=== PATIENT | female | born 1955 | race Caucasian/White ===

== ENCOUNTER 2019-01-26 10:49 | Emergency (ER) | payer OTHER, MEDICARE ==
[2019-01-26] MEDS ORDERED: Adacel (T-DAP) 0.5 ML SYRINGE ONE (11:44)
--- NOTE | 2019-01-26 11:54 | RAD ---
LEFT MIDDLE FINGER 3 VIEWS: HISTORY: Left middle finger pain, injury, wound FINDINGS: No fracture, dislocation or bony destruction is seen. No radiopaque foreign bodies identified.
== END 2019-01-26 12:05 | disposition home or self-care (01) ==
LOC: ERS 10:49
DX: S61.203A Unspecified open wound of left middle finger without damage to nail, initial encounter (principal); E11.9 Type 2 diabetes mellitus without complications; Z79.4 Long term (current) use of insulin; W20.8XXA Other cause of strike by thrown, projected or falling object, initial encounter
CPT/HCPCS: 36416; 90471; 90715

== ENCOUNTER 2019-02-23 08:25 | Outpatient (CLI) | payer OTHER, MEDICARE ==
[2019-02-23] MEDS ORDERED: Sodium Chloride 0.9% 15 ML NEB ONE (09:00)
--- NOTE | 2019-02-24 00:22 | HP ---
HISTORY OF PRESENT ILLNESS: Ms. Nancy Meng is a very pleasant 63-year-old, who presents to the [facility] for evaluation of an ulceration over the dorsum of the left 3rd finger. The patient states that the ulceration began after helping her co-worker pull a cart while she herself was in her wheelchair. The patient states that her finger was caught between her coworker's cart and her own wheelchair. The patient states that she treated the wound with triple antibiotic ointment. She states that she was seen in the emergency department and prescribed a 10 day course of p.o. antibiotics. At a followup visit with her primary care physician, Dr. Oliveira, the patient was referred to the [facility]ound Center for further evaluation and treatment. PAST MEDICAL HISTORY: 1. Diabetes mellitus. 2. Hypertension. 3. History of anemia. 4. Hypothyroidism. 5. History of end-stage renal disease. 6. History of TIA. PAST SURGICAL HISTORY: 1. Laparoscopic cholecystectomy. 2. Dialysis access procedures. 3. Sleeve gastrectomy. 4. Kidney transplant. MEDICATIONS: 1. Synthroid. 2. Lipitor. 3. Vascepa. 4. capsule. 5. Folic acid. 6. Prograf. 7. Mycophenolate. 8. Prednisone. 9. Pravastatin. 10. Metformin. 11. Nexium. ALLERGIES: NO KNOWN ALLERGIES. SOCIAL HISTORY: Significant for tobacco use of 1 pack of cigarettes per day for approximately 2 years. The patient states she stopped smoking in December of 1987. The patient admits to the heavy consumption of alcohol in the past. She states that she stopped drinking in 1981. FAMILY HISTORY: Family history significant for diabetes mellitus. The patient states that she has multiple relatives who were diagnosed with diabetes mellitus. Family history is negative for coronary artery disease. PHYSICAL EXAMINATION: VITAL SIGNS: Temperature 98.2, pulse 68, respirations 19, and blood pressure 145/63. Accu-Chek 114. GENERAL: A 63-year-old female, sitting on chair in examination room, in no acute distress. HEENT: Normocephalic and atraumatic. NECK: No nuchal rigidity. CHEST: Clear to auscultation. CV: Regular rate and rhythm. ABDOMEN: Soft. EXTREMITIES: An ulceration over the dorsum of the left 3rd finger is present, which measures approximately 1.2 x 1.0 cm. Eschar covers the entire the wound bed of the ulceration. No purulent drainage is associated with the wound. No cellulitis of the left 3rd finger is appreciated. No maceration of the skin of the periwound is noted. No significant edema of the left 3rd finger is present on exam today. NEUROLOGIC: Grossly nonfocal. ASSESSMENT AND PLAN: 1. Ulceration of dorsum of left third finger as described above. Dressing changes of Silverlon gauze and Coban will be initiated today. These dressing changes are to be performed on a daily basis after cleansing and irrigation. No antibiotics will be prescribed today based upon the appearance of the wound. I will see Ms. Meng again in 2 weeks. The patient understands and is in agreement with the preceding treatment plan. 2. Diabetes mellitus. The patient's Accu-Chek in clinic today is 114. The patient has been told that for optimal wound healing her blood glucoses should remain below 150. 3. Hypertension. 4. History of anemia. 5. Hypothyroidism. 6. History of end-stage renal disease. 7. History of transient ischemic attack. Job ID: [id number]
== END 2019-02-23 08:26 | disposition home or self-care (01) ==
LOC: WCC 08:25
PROVIDERS: ATTEND Family Medicine
DX: T81.89XD Other complications of procedures, not elsewhere classified, subsequent encounter (principal)
CPT/HCPCS: 97602; 99203; A4218; G0463

== ENCOUNTER 2019-03-09 09:12 | Outpatient (CLI) | payer OTHER, MEDICARE ==
--- NOTE | 2019-03-09 11:20 | PRG ---
DATE OF SERVICE: 03/09/2019 HISTORY: Ms. Nancy Meng is a very pleasant 64-year-old, who presents to the [facility] for evaluation of an ulceration over the dorsum of the left 3rd finger. The patient previously stated that the ulceration began after helping her co-worker pull a cart while she herself was in her wheelchair. The patient stated that her finger was caught between her coworker's cart and her own wheelchair. She stated that she treated the wound with triple antibiotic ointment. She stated that she was seen in the emergency department and prescribed a 10-day course of p.o. antibiotics. At a followup visit with her primary care physician, Dr. Oliveira, the patient was referred to the [facility]ound Center for further evaluation and treatment. After being seen in the Wound Center, the patient was placed on dressing changes of Silverlon gauze and Coban. The patient states she has been performing these dressing changes on a daily basis after cleansing and irrigation as prescribed. PHYSICAL EXAMINATION: VITAL SIGNS: Temperature 98.4, pulse 55, respirations 20, blood pressure 185/77. Accu-Chek 104. EXTREMITIES: An ulceration over the dorsum of the left 3rd finger is present which measures approximately 1.2 x 1.1 cm. Again, eschar covers the entire wound bed of the ulceration. The eschar is dry and stable. No serous or purulent drainage is associated with the wound. No maceration of the skin of the periwound is noted. No significant edema of the left 3rd finger is present on exam today. ASSESSMENT AND PLAN: 1. Ulceration of dorsum of left 3rd finger as described above. Dressing changes of Silverlon gauze and Coban will be continued on a daily basis after cleansing and irrigation. I will see Ms. Meng again in 2 weeks. 2. Diabetes mellitus. The patient's Accu-Chek in clinic today is 104. The patient has been reminded that for optimal wound healing, her blood glucoses should remain below 150. 3. Hypertension. 4. History of anemia. 5. Hypothyroidism. 6. History of end-stage renal disease. 7. History of transient ischemic attack. Job ID: [id number]
[2019-03-09] MEDS ORDERED: Sodium Chloride 0.9% 15 ML NEB ONE (15:00)
== END 2019-03-09 09:13 | disposition home or self-care (01) ==
LOC: WCC 09:12
PROVIDERS: ATTEND Family Medicine
DX: E11.622 Type 2 diabetes mellitus with other skin ulcer (principal); L98.499 Non-pressure chronic ulcer of skin of other sites with unspecified severity; E03.9 Hypothyroidism, unspecified; I12.0 Hypertensive chronic kidney disease with stage 5 chronic kidney disease or end stage renal disease; E11.22 Type 2 diabetes mellitus with diabetic chronic kidney disease; N18.6 End stage renal disease
CPT/HCPCS: A4218

== ENCOUNTER 2019-03-23 10:57 | Outpatient (CLI) | payer OTHER, MEDICARE ==
--- NOTE | 2019-03-23 10:10 | PRG ---
DATE OF SERVICE: 03/23/2019 HISTORY: Ms. Nancy Meng is a very pleasant 64-year-old, who presents to the [facility] for evaluation of an ulceration over the dorsum of the left third finger. The patient previously stated that the ulceration began after helping her co-worker pull a cart while she herself was in her wheelchair. The patient stated that her finger was caught between her coworker's cart and her own wheelchair. She stated that she treated the wound with triple antibiotic ointment. She stated that she was seen in the emergency department and prescribed a 10-day course of p.o. antibiotics. At a followup visit with her primary care physician, Dr. Oliveira, the patient was referred to the [facility]ound Center for further evaluation and treatment. After being seen in the Wound Center, the patient was placed on dressing changes of Silverlon gauze and Coban. Again, the patient states that she has been performing these dressing changes on a daily basis after cleansing and irrigation as prescribed. PHYSICAL EXAMINATION: VITAL SIGNS: Temperature 98.3, pulse 78, respirations 20, blood pressure 201/83, Accu-Chek 112. EXTREMITIES: An ulceration over the dorsum of the left third finger is present, which measures approximately 1.4 x 1.2 cm. Again, eschar covers the entire wound bed of the ulceration. The eschar is dry and stable. Scant serous drainage is associated with the wound. No maceration of the skin of the periwound is noted. No significant edema of the left third finger is present on exam today. ASSESSMENT AND PLAN: 1. Ulceration of dorsum of left third finger as described above. Dressing changes of Silverlon gauze and Coban will be continued on a daily basis after cleansing and irrigation. I will see Ms. Meng again in 2 weeks. The dimensions of the wound at the time of the patient's last visit were approximately 1.2 x 1.1 cm. I have explained to the patient should the dimensions of the wound increase over the next two weeks, consideration will need to be given to treatment with a debriding agent followed by a course of negative pressure therapy. The patient understands and is in agreement with the preceding treatment. 2. Diabetes mellitus. The patient's Accu-Chek in clinic today is 112. The patient has been reminded that for optimal wound healing her blood glucoses should remain below 150. 3. Hypertension. 4. History of anemia. 5. Hypothyroidism. 6. History of end-stage renal disease. 7. History of transient ischemic attack. Job ID: [id number]
[~2019-03-23 10:57] MED LIST: Sodium Chloride 0.9% 15 ML NEB ONE
== END 2019-03-23 10:58 | disposition home or self-care (01) ==
LOC: WCC 10:57
PROVIDERS: ATTEND Family Medicine
DX: E11.622 Type 2 diabetes mellitus with other skin ulcer (principal); L98.499 Non-pressure chronic ulcer of skin of other sites with unspecified severity; I10 Essential (primary) hypertension; E03.9 Hypothyroidism, unspecified; N18.6 End stage renal disease; Z86.73 Personal history of transient ischemic attack (TIA), and cerebral infarction without residual deficits; Z86.2 Personal history of diseases of the blood and blood-forming organs and certain disorders involving the immune mechanism
CPT/HCPCS: A4218

== ENCOUNTER 2019-04-06 08:30 | Outpatient (CLI) | payer OTHER, MEDICARE ==
--- NOTE | 2019-04-06 09:54 | PRG ---
DATE OF SERVICE: 04/06/2019 HISTORY: Ms. Nancy Meng is a very pleasant 64-year-old, who presents to the wound center for evaluation of an ulceration over the dorsum of the left 3rd finger. The patient previously stated that the ulceration began after helping her coworker pull a cart while she herself was in her wheelchair. The patient stated that her finger was caught between her coworker's cart and her own wheelchair. She stated that she treated the wound with triple antibiotic ointment. She stated that she was seen in the emergency department and prescribed a 10-day course of p.o. antibiotics. At a followup visit with her primary care physician, Dr. Oliveira, the patient was referred to the wound center for further evaluation and treatment. After being seen in the wound center, the patient was placed on dressing changes of Silverlon gauze and Coban. Again, the patient states she has been performing these dressing changes on a daily basis after cleansing and irrigation as prescribed. Today, the patient complains of pain associated with the ulceration of the dorsum of the left 3rd finger. PHYSICAL EXAMINATION: VITAL SIGNS: Temperature 97.8, pulse 65, respirations 16, and blood pressure 185/74. Accu-Chek 89. EXTREMITIES: An ulceration over the dorsum of the left 3rd finger is present, which measures approximately 1.3 x 1.6 cm. The dimensions of the wound at the time of the patient's visit on 03/23/2019 were approximately 1.4 x 1.2 cm. Again, eschar covers the entire wound bed of the ulceration. The eschar is dry and stable. No serous drainage is associated with the wound on exam today. No maceration of the skin of the periwound is noted. No significant edema of the left 3rd finger is present on exam today. ASSESSMENT AND PLAN: 1. Ulceration of dorsum of the left 3rd finger as described above. Dressing changes of Silvercel gauze and Coban will be initiated today. These dressing changes are to be performed on a daily basis after cleansing and irrigation. Arrangements will be made for MRI of the left hand to look for findings suggestive of osteomyelitis. I will see Ms. Meng again after imaging is complete. The patient understands and is in agreement with the preceding treatment plan. 2. Diabetes mellitus. The patient's Accu-Chek in clinic today is 89. The patient has been reminded that for optimal wound healing her blood glucoses should remain below 150. 3. Hypertension. 4. History of anemia. 5. Hypothyroidism. 6. History of end-stage renal disease. 7. History of transient ischemic attack. Job ID: [id number]
[2019-04-06] MEDS ORDERED: Sodium Chloride 0.9% 15 ML NEB ONE (15:57)
== END 2019-04-06 08:31 | disposition home or self-care (01) ==
LOC: WCC 08:30
PROVIDERS: ATTEND Family Medicine
DX: E11.622 Type 2 diabetes mellitus with other skin ulcer (principal); L98.499 Non-pressure chronic ulcer of skin of other sites with unspecified severity; E03.9 Hypothyroidism, unspecified; I12.0 Hypertensive chronic kidney disease with stage 5 chronic kidney disease or end stage renal disease; E11.22 Type 2 diabetes mellitus with diabetic chronic kidney disease; N18.6 End stage renal disease; Z86.73 Personal history of transient ischemic attack (TIA), and cerebral infarction without residual deficits; Z86.2 Personal history of diseases of the blood and blood-forming organs and certain disorders involving the immune mechanism
CPT/HCPCS: A4218

== ENCOUNTER 2019-05-09 08:27 | Outpatient (CLI) | payer OTHER, MEDICARE ==
--- NOTE | 2019-05-09 11:30 | MRI ---
MRI OF THE LEFT HAND: DATE: 05/09/2019. PROVIDED CLINICAL HISTORY: Third digit pain and swelling, concern for osteomyelitis. FINDINGS: There is thickening and signal alteration involving the skin and subcutaneous adipose layer involving the terminal aspects of the left long digit. There is no definite evidence for a focal fluid collec tion to suggest abscess, with limitations due to lack of IV contrast material. There is mildly dimin ished signal intensity on T1 weighted sequences and increased signal intensity on fluid sensitive seq uences involving the distal phalanx of the third digit diffusely and the distal aspects of the third digit middle phalanx. There is no DIP joint effusion. There is no evidence for significant regional tenosynovial fluid. Alignment appears anatomic. Joint spaces appear preserved. O regional muscular signal abnormality is evident. IMPRESSION: Signal changes involving the third digit distally compatible with cellulitis and osteomyelitis in the appropriate clinical context. Evaluation for abscess is limited in the absence of IV contrast, witho ut gross evidence for such. POS: OFF
== END 2019-05-09 08:28 | disposition home or self-care (01) ==
LOC: SCSMRI 08:27
PROVIDERS: ATTEND Family Medicine
DX: S61.203A Unspecified open wound of left middle finger without damage to nail, initial encounter (principal); M86.9 Osteomyelitis, unspecified

== ENCOUNTER 2019-05-10 12:19 | Emergency (ER) | payer OTHER, MEDICARE | END 2019-05-10 15:08 | disposition left against medical advice (07) | LOC: ERS 12:19 | DX: M86.9 Osteomyelitis, unspecified (principal); E11.9 Type 2 diabetes mellitus without complications; F41.9 Anxiety disorder, unspecified; Z79.4 Long term (current) use of insulin ==

== ENCOUNTER 2022-06-16 12:49 | Outpatient (CLI) | payer MEDICARE | END 2022-06-16 12:50 | disposition home or self-care (01) | LOC: SCSRAD 12:49 | PROVIDERS: ATTEND Family Medicine | DX: M79.672 Pain in left foot (principal) ==

== ENCOUNTER 2022-07-24 05:34 | Day surgery (SDC) | payer MEDICARE ==
[2022-07-23 10:30] VITALS: BMI 25.7
[2022-07-24] MEDS ORDERED: Lidocaine 1% (PF) 30 ML VIAL ONE (06:16)
[2022-07-24 06:46] LABS: Hemoglobin 12.5 g/dL (12.0-16.0); Mean Corpuscular HGB CONC 31.9 g/dL (32.0-36.0); Mean Corpuscular Hemoglobin 30.7 pg (27.0-31.0); Mean Corpuscular Volume 96.3 fl (78.0-98.0); Mean Platelet Volume 8.4 fL (7.4-10.4); Platelet Count 183 10x3/uL (130-400); RBC Distribution Width 12.4 % (11.5-14.5); Red Blood Cell (RBC) Count 4.08 mill/uL (4.20-5.40); White Blood Cell (WBC) Count 21.9 10x3/uL (4.8-10.8)
[2022-07-24 07:04] LABS: Anion Gap 15 mmol/L (10-20); BUN (Urea Nitrogen) 16 mg/dL (9.8-20.1); Calc. Creatinine Clearance 50 mL/min (70-130); Calcium 10.5 mg/dL (7.8-10.44); Carbon Dioxide 26 mmol/L (23-31); Chloride 102 mmol/L (98-107); Estimated GFR 63; Glucose 207 mg/dL (80-115); Potassium 4.2 mmol/L (3.5-5.1); Sodium 139 mmol/L (136-145)
[2022-07-24] MEDS ORDERED: FENTANYL 50 MCG/ML 1 ML VIAL ONE (07:16)
[2022-07-24] MEDS ORDERED: Midazolam HCl 2 mg/2 ml Vial ONE (07:17)
[2022-07-24 07:40] LABS: Band 8 % (5-11); Lymphocytes 3 % (21-51); MDiff Complete? YES; Monocytes 12 % (0-10); Neutrophil 77 % (42-75); Platelet Morphology Comment Appears Adequate; Vacuoles SLIGHT
[2022-07-24] MEDS ORDERED: Heparin 10,000 UNITS/ 10 ML VIAL ONE (07:53)
[2022-07-24] MEDS ORDERED: Clopidogrel Bisulfate 300 MG TAB ONE (07:57)
[2022-07-24] MEDS ORDERED: Protamine Sulfate 50 MG/5 ML VIAL ONE (08:15)
[2022-07-24] MEDS ORDERED: Famotidine 20 MG TAB PO SCH (08:45)
[2022-07-24] MEDS ORDERED: Famotidine 20 MG TAB ONE (08:49)
[2022-07-24] MEDS ORDERED: NIFEdipine XL 30 MG TAB PO SCH (11:15)
[2022-07-24] MEDS ORDERED: Losartan 25 MG TAB PO SCH (11:15)
== END 2022-07-24 14:48 | disposition home or self-care (01) ==
LOC: SDC 05:34
PROVIDERS: ATTEND Thoracic Surgery (Cardiothoracic Vascular Surgery)
PROC: 047Q34Z Dilation of Left Anterior Tibial Artery with Drug-eluting Intraluminal Device, Percutaneous Approach (ICD-10-PCS; principal; 2022-07-24)
DX: E11.51 Type 2 diabetes mellitus with diabetic peripheral angiopathy without gangrene (principal); I70.213 Atherosclerosis of native arteries of extremities with intermittent claudication, bilateral legs; S91.302A Unspecified open wound, left foot, initial encounter; E78.5 Hyperlipidemia, unspecified; E03.9 Hypothyroidism, unspecified; E11.22 Type 2 diabetes mellitus with diabetic chronic kidney disease; N18.6 End stage renal disease; D63.1 Anemia in chronic kidney disease; M19.90 Unspecified osteoarthritis, unspecified site; Z87.891 Personal history of nicotine dependence; Z79.52 Long term (current) use of systemic steroids; Z79.621 Long term (current) use of calcineurin inhibitor; Z79.82 Long term (current) use of aspirin; Z79.83 Long term (current) use of bisphosphonates; Z79.84 Long term (current) use of oral hypoglycemic drugs; Z79.890 Hormone replacement therapy; Z79.899 Other long term (current) drug therapy; Z94.0 Kidney transplant status; Z98.84 Bariatric surgery status; Z99.2 Dependence on renal dialysis
CPT/HCPCS: 80048; 85025; 85347 ×2; J3010; 36415; 75625; C1769; C1874; C1887; J1644; J2001; J2250; J2720

== ENCOUNTER 2023-08-07 16:40 | Inpatient (IN) | payer MEDICARE ==
[2023-08-07 17:25] VITALS: BMI 22.9
[2023-08-07] MEDS ORDERED: HYDROcodone/Acetaminophen 10/325 mg Tablet PO PRN (18:00)
[2023-08-07] MEDS ORDERED: Ondansetron PF 4 MG/2 ML Vial IVP PRN (18:00)
[2023-08-07] MEDS ORDERED: Vancomycin HCl 500 MG in Sodium Chloride 0.9% 100 ML IVPB SCH (18:15)
[2023-08-07] MEDS: Piperacillin/Tazobactam 3.375 GM in Sodium Chloride 0.9% 100 ML IVPB SCH ×2 (18:38→20:21)
[2023-08-07] MEDS: Morphine 2 MG/ML VIAL SLOW IVP SCH (18:53)
[2023-08-07] MEDS: NIFEdipine XL 30 MG ER.TAB PO SCH (20:17)
[2023-08-07] MEDS: Heparin 5,000 UNITS/ML VIAL SC SCH (20:17)
[2023-08-07] MEDS: HYDROcodone/Acetaminophen 10/325 mg Tablet PO PRN (20:20)
[2023-08-07] MEDS: Vancomycin (BATCH) 1.25 GM in Premix 1 BAG IVPB SCH (20:22)
[2023-08-07] MEDS: Tacrolimus 0.5 MG CAP PO SCH (20:22)
[2023-08-07] MEDS: Gabapentin 300 MG CAP PO SCH (20:22)
[2023-08-07] MEDS: Morphine 2 MG/ML VIAL SLOW IVP PRN (23:17)
[2023-08-08] MEDS ORDERED: fentaNYL 50 mcg/mL 1 mL Vial ONE ×5 (09:52→11:35)
[2023-08-08] MEDS ORDERED: PROPOFOL 20 ML ONE (09:52)
[2023-08-08] MEDS ORDERED: Lidocaine 1% PF 5 ML VIAL ONE (09:56)
[2023-08-08] MEDS: Escitalopram Oxalate 10 mg Tablet PO SCH (10:07)
[2023-08-08] MEDS: Atorvastatin Calcium 20 MG TAB PO SCH (10:07)
[2023-08-08] MEDS: predniSONE 5 MG TAB PO SCH (10:07)
[2023-08-08] MEDS: Furosemide 20 MG TAB PO SCH (10:07)
[2023-08-08] MEDS ORDERED: PHENYLEPHRINE-NS 100 MCG/ML 10 ML SYRINGE ONE (10:15)
[2023-08-08] MEDS ORDERED: Vancomycin 1 GM VIAL ONE (10:18)
[2023-08-08] MEDS ORDERED: Ondansetron HCl/PF 4 MG/2 ML Vial IVP PRN (10:30)
[2023-08-08] MEDS ORDERED: Promethazine HCl 25 MG/ML VIAL IM PRN (10:30)
[2023-08-08] MEDS ORDERED: Hydrocortisone Sod Succ/PF 100 mg/2 ml Vial ONE (10:31)
[2023-08-08] MEDS ORDERED: fentaNYL PF 100 MCG/2 ML SYRINGE ONE (11:14)
[2023-08-08] MEDS: Morphine 2 MG/ML VIAL SLOW IVP SCH (13:37)
[2023-08-08] MEDS: Morphine 2 MG/ML VIAL SLOW IVP PRN (17:41)
[2023-08-08 19:29] LABS: #Monocytes 0.2 thou/uL (0.11-0.59); #Neutrophils 15.5 thou/uL (1.40-6.50); %Basophils 0.2 % (0.0-1.0); %Lymphocytes 3.5 % (21.0-51.0); %Monocytes 1.5 % (0.0-10.0); %Neutrophils 94.1 % (42.0-75.0); Hematocrit 30.2 % (36.0-47.0); Mean Corpuscular HGB CONC 29.8 g/dL (32.0-36.0); Mean Corpuscular Hemoglobin 30.1 pg (27.0-31.0); Mean Platelet Volume 10.5 fL (7.4-10.4); Platelet Count 310 10x3/uL (130-400); RBC Distribution Width 14.3 % (11.5-14.5); Red Blood Cell (RBC) Count 2.99 mill/uL (4.20-5.40); White Blood Cell (WBC) Count 16.5 10x3/uL (4.8-10.8)
[2023-08-08 19:56] LABS: Anion Gap 19 mmol/L (10-20); BUN (Urea Nitrogen) 15 mg/dL (9.8-20.1); Calc. Creatinine Clearance 48 mL/min (70-130); Calcium 9.3 mg/dL (7.8-10.44); Carbon Dioxide 17 mmol/L (23-31); Chloride 108 mmol/L (98-107); Estimated GFR 70; Glucose 93 mg/dL (80-115); Sodium 140 mmol/L (136-145)
[2023-08-08] MEDS: Vancomycin HCl 750 MG in Sodium Chloride 0.9% 250 ML 250 ML IVPB SCH (20:04)
[2023-08-09] MEDS: Acetaminophen 325 MG TAB PO PRN (19:02)
[2023-08-09 20:40] LABS: Vancomycin, Trough 17.3 ug/mL
[2023-08-10 04:49] LABS: #Eosinphils 0.2 thou/uL (0.0-0.7); #Monocytes 0.7 thou/uL (0.11-0.59); #Neutrophils 4.2 thou/uL (1.40-6.50); %Basophils 0.3 % (0.0-1.0); %Eosinophils 2.2 % (0.0-10.0); %Lymphocytes 23.1 % (21.0-51.0); %Monocytes 11.1 % (0.0-10.0); %Neutrophils 63.2 % (42.0-75.0); Hematocrit 27.2 % (36.0-47.0); Hemoglobin 8.2 g/dL (12.0-16.0); Mean Corpuscular HGB CONC 30.1 g/dL (32.0-36.0); Mean Corpuscular Hemoglobin 29.7 pg (27.0-31.0); Mean Corpuscular Volume 98.6 fl (78.0-98.0); Mean Platelet Volume 10.5 fL (7.4-10.4); Platelet Count 240 10x3/uL (130-400); Red Blood Cell (RBC) Count 2.76 mill/uL (4.20-5.40); White Blood Cell (WBC) Count 6.7 10x3/uL (4.8-10.8)
[2023-08-10 05:13] LABS: Anion Gap 10 mmol/L (10-20); BUN (Urea Nitrogen) 14 mg/dL (9.8-20.1); Calc. Creatinine Clearance 40 mL/min (70-130); Calcium 8.8 mg/dL (7.8-10.44); Carbon Dioxide 26 mmol/L (23-31); Chloride 108 mmol/L (98-107); Estimated GFR 55; Glucose 92 mg/dL (80-115); Potassium 3.4 mmol/L (3.5-5.1); Sodium 141 mmol/L (136-145)
[2023-08-11 19:32] LABS: Vancomycin, Trough 19.4 ug/mL
[2023-08-12] MEDS: Aspirin 81 mg Enteric Coated Tablet PO SCH (08:29)
[2023-08-13 16:45] VITALS: BP 118/52; TEMP 98.2
== END 2023-08-13 17:00 | DRG 239 ==
LOC: SURG A 16:40
PROVIDERS: ADMIT Family Medicine; ATTEND Family Medicine
PROC: 0Y6H0Z1 Detachment at Right Lower Leg, High, Open Approach (ICD-10-PCS; principal; 2023-08-08)
DX: E11.52 Type 2 diabetes mellitus with diabetic peripheral angiopathy with gangrene (principal); N18.6 End stage renal disease; I96 Gangrene, not elsewhere classified; Z94.0 Kidney transplant status; I12.0 Hypertensive chronic kidney disease with stage 5 chronic kidney disease or end stage renal disease; I16.0 Hypertensive urgency; E78.5 Hyperlipidemia, unspecified; F41.9 Anxiety disorder, unspecified; E03.9 Hypothyroidism, unspecified; Z79.899 Other long term (current) drug therapy; Z90.49 Acquired absence of other specified parts of digestive tract; Z89.512 Acquired absence of left leg below knee; Z98.890 Other specified postprocedural states; E11.22 Type 2 diabetes mellitus with diabetic chronic kidney disease
CPT/HCPCS: 36415; 36416; 75635; 80048; 80053; 80202; 83605; 85025; 85610; 85730; 96361; 96365; 96375; 96376; 99215; G0463; J1644; J1720; J2270; J2272; J2405; J2543; J2704; J3010; J3370; J3490; J7050; J7507; J7512; Q9967

== ENCOUNTER 2023-11-29 01:48 | Emergency (ER) | payer MEDICARE ==
[2023-11-29 02:32] LABS: #Basophils Less than 0.03 10x3/uL (0.0-0.2); %Basophils 0.1 % (0.0-1.0); %Eosinophils 0.9 % (0.0-10.0); %Lymphocytes 6.5 % (21.0-51.0); %Monocytes 7.7 % (0.0-10.0); %Neutrophils 84.4 % (42.0-75.0); Hematocrit 35.7 % (36.0-47.0); Hemoglobin 10.9 g/dL (12.0-16.0); Mean Corpuscular HGB CONC 30.5 g/dL (32.0-36.0); Mean Corpuscular Hemoglobin 29.5 pg (27.0-31.0); Mean Corpuscular Volume 96.5 fL (78.0-98.0); Mean Platelet Volume 10.6 fL (7.4-10.4); Platelet Count 191 10x3/uL (130-400); RBC Distribution Width 14.6 % (11.5-14.5)
[2023-11-29 02:51] LABS: ALT (SGPT) 60 U/L (8-55); AST (SGOT) 76 U/L (5-34); Albumin 3.5 g/dL (3.4-4.8); Alkaline Phosphatase 95 U/L (40-110); Anion Gap 15 mmol/L (10-20); BUN (Urea Nitrogen) 21 mg/dL (9.8-20.1); Bilirubin, Total 0.4 mg/dL (0.2-1.2); Calc. Creatinine Clearance 0 mL/min (70-130); Calcium 9.5 mg/dL (7.8-10.44); Carbon Dioxide 18 mmol/L (23-31); Chloride 110 mmol/L (98-107); Estimated GFR 55; Globulin 3.4 g/dL (2.4-3.5); Glucose 196 mg/dL (80-115); Potassium 3.9 mmol/L (3.5-5.1); Protein, Total 6.9 g/dL (5.8-8.1); Sodium 139 mmol/L (136-145)
[2023-11-29 02:55] LABS: Troponin I 0.026 ng/mL (< 0.028)
== END 2023-11-29 04:43 | disposition home or self-care (01) ==
LOC: ERS 01:48
DX: K52.9 Noninfective gastroenteritis and colitis, unspecified (principal); E11.9 Type 2 diabetes mellitus without complications; E78.5 Hyperlipidemia, unspecified
CPT/HCPCS: 36415; 71045; 80053; 83880; 84484; 85025; 93005

== ENCOUNTER 2025-02-02 08:44 | Day surgery (SDC) | payer OTHER ==
[2025-02-02 09:15] LABS: #Basophils 0.03 10x3/uL (0.0-0.2); #Eosinophils 0.14 10x3/uL (0.0-0.7); #Monocytes 0.53 10x3/uL (0.11-0.59); #Neutrophils 4.59 10x3/uL (1.40-6.50); %Basophils 0.5 % (0.0-1.0); %Eosinophils 2.1 % (0.0-10.0); %Lymphocytes 19.0 % (21.0-51.0); %Monocytes 8.1 % (0.0-10.0); %Neutrophils 70.1 % (42.0-75.0); Hematocrit 36.0 % (36.0-47.0); Hemoglobin 11.1 g/dL (12.0-16.0); Mean Corpuscular Hemoglobin 30.2 pg (27.0-31.0); Mean Corpuscular Volume 98.1 fL (78.0-98.0); Platelet Count 195 10x3/uL (130-400); Red Blood Cell (RBC) Count 3.67 mill/uL (4.20-5.40); White Blood Cell (WBC) Count 6.54 10x3/uL (4.8-10.8)
[2025-02-02 09:30] LABS: INR-International Normal Ratio 1.0; PTT 24.4 sec (22.9-36.1); Prothrombin Time 13.3 sec (12.0-14.7)
== END 2025-02-02 10:15 | disposition home or self-care (01) ==
LOC: CT 08:44
PROVIDERS: ATTEND Family Medicine
DX: Z94.0 Kidney transplant status (principal)
CPT/HCPCS: 36415; 85025; 85610; 85730

== ENCOUNTER 2025-02-22 09:05 | Day surgery (SDC) | payer OTHER | END 2025-02-22 12:00 | disposition home or self-care (01) | LOC: CT 09:05 | PROVIDERS: ATTEND Family Medicine | DX: R80.9 Proteinuria, unspecified (principal); Z53.9 Procedure and treatment not carried out, unspecified reason; Z94.0 Kidney transplant status | CPT/HCPCS: 36000 ==